=== PATIENT | male | born 1995 | race Asian ===

== ENCOUNTER 2019-03-11 23:58 | Emergency (ER) | payer SELFPAY ==
[~2019-03-11] VITALS: Ht 185.4 cm; Wt 115.2 kg
[2019-03-12 00:04] VITALS: Ht 185.4 cm; Wt 115.2 kg
[2019-03-12 00:45] VITALS: BP 130/93
== END 2019-03-12 00:45 | disposition home or self-care (01) ==
LOC: ED 23:58
DX: S01.21XA Laceration without foreign body of nose, initial encounter (principal); W55.01XA Bitten by cat, initial encounter; Y93.89 Activity, other specified; Y92.89 Other specified places as the place of occurrence of the external cause; Y99.8 Other external cause status